=== PATIENT | male | born 1980 | race Caucasian/White ===

== ENCOUNTER 2022-11-03 21:48 | Emergency (ER) | payer SELFPAY ==
[2022-11-03 22:00] VITALS: BP 207/118; PULSE 73; RESP 20; TEMP 36.6; O2SAT 98; BMI 31.4
--- NOTE | 2022-11-03 22:12 | CTR_ITS ---
PROCEDURE INFORMATION: Exam: CT Abdomen And Pelvis Without Contrast Exam date and time: 11/03/2022 10:35 PM Age: 41 years old Clinical indication: Abdominal pain; Flank; Right; Additional info: Right flank pain TECHNIQUE: Imaging protocol: Computed tomography of the abdomen and pelvis without contrast. Radiation optimization: All CT scans at this facility use at least one of these dose optimization techniques: automated exposure control; mA and/or kV adjustment per patient size (includes targeted exams where dose is matched to clinical indication); or iterative reconstruction. REPORTING DATA: Count of CT and Cardiac NM exams in prior 12 months: This patient has received 0 known CTs and 0 known cardiac nuclear medicine studies in the 12 months prior to the current study. COMPARISON: No relevant prior studies available. RADIATION DOSE METRICS: Total DLP (mGy-cm): 933.27 FINDINGS: Lungs: The visualized lung bases show no consolidation. There is a 2.1 cm pneumatocele in the left lower lobe. Liver: The liver is normal in size and homogeneous density. Gallbladder and bile ducts: There has been a cholecystectomy. There is no evidence of biliary ductal dilation. Pancreas: The pancreas is normal. Spleen: The spleen is normal in size and density. Adrenal glands: The adrenal glands are normal. Kidneys and ureters: There is fullness of the right renal collecting system and ureter down to the distal ureter. One cm from the right ureterovesical junction (UVJ), there is a punctate, 3 mm partially obstructive calculus. Stomach and bowel: There is no evidence of small bowel or colonic obstruction. Appendix: The appendix is not identified. There are no pericecal inflammatory changes. Intraperitoneal space: No free air. No significant fluid collection. Vasculature: There is no abdominal aortic aneurysm. Lymph nodes: No enlarged retroperitoneal or mesenteric lymph nodes. Urinary bladder: There is mild bladder wall thickening. Reproductive: Unremarkable as visualized. Bones/joints: No acute fracture. Multilevel degenerative disc disease without significant spinal canal stenosis. Soft tissues: There is a small fat-containing umbilical hernia. Small bilateral nonobstructing inguinal hernias containing adipose tissue. CT/CT kidney stone [id number] IMPRESSION: 1. A partially obstructive 3 mm calculus in the distal right ureter. 2. Bladder wall thickening suggesting cystitis, incomplete distention or chronic outflow obstruction. No bladder stones identified. 3. Status post cholecystectomy. 4. Small fatty umbilical and inguinal hernias.
--- NOTE | 2022-11-03 22:13 | W.ED.MALEGU ---
HPI - Male Genitourinary General: Chief complaint: Urogenital-Male Stated complaint: abdomen pain Time Seen by Provider: 11/03/22 21:50 Source: patient Mode of arrival: ambulatory Limitations: no limitations History of Present Illness: 41-year-old male who states that he had sudden onset of right testicle and right flank pain a few hours ago. States pain is very sharp in nature rates it a 9 out of 10 he denies any worsening proving factors. States he feels like he is having a hard time urinate as well. Has had some nausea denies any vomiting denies any fevers. Associated symptoms: Deny dysuria, nausea or vomiting Review of Systems Const: Denies: fever(s), chills, body aches or change in appetite ENMT: Denies: throat pain or dental pain Card: Denies: chest pain Resp: Denies: dyspnea GI: Denies: abdominal pain, nausea, vomiting or diarrhea : Reports: flank pain and testicular pain; Denies: dysuria Musc: Denies: neck pain or back pain Skin/Breast: Denies: rash Neuro: Denies: headache(s) [place]/Lymph: Denies: easy bruising Physical Exam Const: COMMON NORMALS: no acute distress, patient oriented x3 and healthy appearing HENMT: COMMON NORMALS: normocephalic and atraumatic HEAD & SCALP: normocephalic and atraumatic Neck/C-Spine: COMMON NORMALS: full ROM and supple Chest: COMMONS NORMALS: normal inspection of the chest Resp: COMMON NORMALS: normal respiratory effort, No retractions, No use of accessory muscles and clear to auscultation bilaterally AUSCULTATION: clear to auscultation bilaterally Cardio: COMMON NORMALS: regular rate, regular rhythm and No murmurs present (Cardio) RATE: regular rate RHYTHM: regular rhythm GI: COMMON NORMALS: Normal to inspection, nondistended, normoactive bowel sounds present, Soft to palpation, non-tender and no masses PALPATION: Yes Soft to palpation : PENIS: normal penis SCROTUM: Yes testes descended bilaterally and No Scrotal tenderness present Extremity: COMMON NORMALS: normal to inspection and full ROM Neuro: COMMON NORMALS: patient oriented x3, moves all extremities and no focal motor deficits Psych: COMMON NORMALS: mental status grossly normal, Normal thought process present and cooperative THOUGHT PROCESS: Normal thought process present Skin: COMMON NORMALS: no rashes or lesions noted and no wounds GENERAL SKIN EXAM: no rashes or lesions noted Course Vital Signs: Vital signs: Vital Signs Temperature 97.9 F 11/03/22 22:00 Pulse Rate 73 11/03/22 22:00 Respiratory Rate 18 11/03/22 22:23 Blood Pressure 207/118 11/03/22 22:00 Pulse Oximetry 98 11/03/22 22:00 Oxygen Delivery Me thod Room Air 11/03/22 22:00 MDM - Male Medical Decision Making Patient presents with right flank pain does have a kidney stones 3 mm should be able to pass his pains improved here no signs UTI will prescribe pain meds along with nausea medicine he is to follow-up with his PCP return if worsening Medical Records I reviewed the patient's medical records. Lab Data I reviewed the patient's lab results. 11/03/22 22:29 11/03/22 22:29 Radiology Impressions Abdomen/Pelvis CT 11/03/22 22:12 IMPRESSION: 1. A partially obstructive 3 mm calculus in the distal right ureter. 2. Bladder wall thickening suggesting cystitis, incomplete distention or chronic outflow obstruction. No bladder stones identified. 3. Status post cholecystectomy. 4. Small fatty umbilical and inguinal hernias. Laboratory Results WBC 9.7 10^3/uL (4.0-10.0) 11/03/22 22: RBC 5.18 10^6/uL (4.1-5.3) 11/03/22 22: Hgb 15.3 g/dL (11.7-16.6) 11/03/22 22: Hct 46.5 % (42.0-52.0) 11/03/22 22: MCV 89.8 fl (80-94) 11/03/22 22: MCH 29.5 pg (28.0-34.0) 11/03/22 22: MCHC 32.9 g/dL (30.0-36.0) 11/03/22 22: RDW 13.5 % (12.1-15.1) 11/03/22 22: Plt Count 231 10^3/cmm (130-400) 11/03/22 22: MPV 11.1 fL (7.4-10.4) H 11/03/22 22: Neut % (Auto) 71.3 % 11/03/22 22: Lymph % (Auto) 16.2 % 11/03/22 22: [place] % (Auto) 8.7 % 11/03/22 22: Eos % (Auto) 2.7 % 11/03/22 22: Baso % (Auto) 0.6 % 11/03/22: Neut # (Auto) 6.93 10^3/uL (1.8-7.7) 11/03/22 22: Lymph # (Auto) 1.6 10^3/uL (0.8-4.8) 11/03/22: [place] # (Auto) 0.8 10^3/uL (0.2-0.9) 11/03/22: Eos # (Auto) 0.3 10^3/uL (0.0-0.8) 11/03/22: Baso # (Auto) 0.1 10^3/uL (0.0-0.1) 11/03/22: Nucleated RBC % (auto) 0 % 11/03/22: Nucleated RBCs # 0.0 /100WBC 11/03/22 22: Sodium 141 mmol/L (136-145) 11/03/22 22: Potassium 3.9 mmol/L (3.5-5.1) 11/03/22 22: Chloride 104 mmol/L (98-107) 11/03/22: Carbon Dioxide 26 mmol/L (22-29) 11/03/22 22: Anion Gap 14.9 (5-19) 11/03/22 22: BUN 10 mg/dL (6-20) 11/03/22: Creatinine 0.9 mg/dL (0.7-1.2) 11/03/22: GFR Calculation 93.5 mL/min (90-130) 11/03/22 22: Glucose 138 mg/dL (65-115) H 11/03/22 22: Calculated Osmolality 293 mOsm/kg (285-295) 11/03/22: Calcium 8.8 mg/dL (8.5-10.5) 08/03/23 22:29 Total Bilirubin 0.2 mg/dL (0.15-1.2) 11/03/22 22:29 AST 18 U/L (0-40) 11/03/22 22:29 ALT 15 U/L (0-41) 11/03/22 22:29 Alkaline Phosphatase 113 U/L (40-130) 11/03/22 22:29 Total Protein 7.2 g/dL (6.6-8.7) 11/03/22 22: Albumin 4.2 g/dL (3.5-5.2) 11/03/22 22: Globulin 3.0 g/dL (1.3-4.6) 11/03/22 22: Lipase 19 U/L (13-60) 11/03/22 22:29 Urine Color Yellow (Yellow) 11/03/22 22:06 Urine Appearance Clear (CLEAR) 11/03/22 22:06 Urine pH 5 (5-7) 11/03/22 22:06 Ur Specific [place] 1.025 (1.005-1.030) 11/03/22 22:06 Urine Protein 1+ (Negative) H 11/03/22 22:06 Urine Glucose (UA) Norm (Normal) 11/03/22 22:06 Urine Ketones Negative (Negative) 11/03/22 22:06 Urine Blood 3+ (Negative) H 11/03/22 22:06 Urine Nitrate Negative (Negative) 11/03/22 22:06 Urine Bilirubin Neg (Negative) 11/03/22 22:06 Urine Urobilinogen Neg mg/dL (Negative) 11/03/22 22:06 Ur Leukocyte Esterase Negative (Negative) 11/03/22 22:06 Urine RBC 15-25 /hpf (0-2) H 11/03/22 22:06 Urine WBC None /hpf (0-5) 11/03/22 22:06 Ur Squamous Epith Cells None /hpf (0-5) 11/03/22 22:06 Amorphous Sediment Not Reportable 11/03/22 22:06 Urine Bacteria 1+ /hpf (NONE) H 11/03/22 22:06 Urine Mucus 2+ /hpf 11/03/22 22:06 Discharge Plan Discharge Patient Disposition: Home Clinical Impression: Kidney stone Condition: Stable Prescriptions: New hydrocodone-acetaminophen 5-325 mg tablet 1 tab PO Q6H PRN (Reason: pain) Qty: 14 0RF ondansetron 4 mg tablet,disintegrating 4 mg PO Q6H PRN (Reason: nausea and vomiting) Qty: 14 0RF Discharge Orders: Discharge ED (Routine); Ordered 11/03/22 Ordered By: Zainab Georges Discharge Diet: Advance as tolerated Discharge Activity: Resume usual activity Patient Instructions: Kidney Stones (ED), Opioid Safety Coding Level of Care Code ED Abrading Machine Tender for Meghna Campbell
[2022-11-03 22:23] VITALS: RESP 18
[2022-11-03] MEDS: HYDROmorphone 1 mg/mL INJ 1 mL IVP (22:23)
[2022-11-03] MEDS: ondansetron 2 mg/ML SDV 2 mL 4 MG IVP (22:23)
[2022-11-03] MEDS: sodium chloride 0.9% 1,000 ML 999 ML IV (22:23)
[2022-11-03 22:39] LABS: Basophils # 0.1 10^3/uL (0.0-0.1); Basophils % 0.6 %; Eosinophils # 0.3 10^3/uL (0.0-0.8); Eosinophils % 2.7 %; Hematocrit 46.5 % (42.0-52.0); Hemoglobin 15.3 g/dL (11.7-16.6); Lymphocytes # 1.6 10^3/uL (0.8-4.8); Lymphocytes % 16.2 %; Mean Corpuscular HGB Conc 32.9 g/dL (30.0-36.0); Mean Corpuscular Hemoglobin 29.5 pg (28.0-34.0); Mean Corpuscular Volume 89.8 fl (80-94); Mean Platelet Volume 11.1 fL (7.4-10.4); Monocytes # 0.8 10^3/uL (0.2-0.9); Monocytes % 8.7 %; Neutrophils # 6.93 10^3/uL (1.8-7.7); Neutrophils % 71.3 %; Nucleated Red Blood Cells % 0 %; Platelet Count 231 10^3/cmm (130-400); Red Blood Count 5.18 10^6/uL (4.1-5.3); Red Cell Distribution Width 13.5 % (12.1-15.1); White Blood Count 9.7 10^3/uL (4.0-10.0)
[2022-11-03] MEDS: ketorolac 30 mg/mL INJ IVP (22:52)
[2022-11-03 22:53] LABS: Add Urine Microscopic? YES; Bilirubin Urine Neg (Negative); Blood Urine 3+ (Negative); Glucose Urine UA Norm (Normal); Ketones Urine Negative (Negative); Leukocyte Esterase Urine Negative (Negative); Nitrate Urine Negative (Negative); Protein Urine 1+ (Negative); Specific Gravity, Urine 1.025 (1.005-1.030); Urine Appearance Clear (CLEAR); Urine Color Yellow (Yellow); Urobilinogen Urine Neg (Negative); pH Urine 5 (5-7)
[2022-11-03 22:54] LABS: Add Urine Culture? Yes; Bacteria Urine 1+ /hpf; Mucus Urine 2+ /hpf; RBC Urine 15-25 /hpf (0-2)
[2022-11-03 23:01] LABS: Alanine Aminotransferase 15 U/L (0-41); Albumin Level 4.2 g/dL (3.5-5.2); Alkaline Phosphatase 113 U/L (40-130); Anion Gap 14.9 (5-19); Aspartate Amino Transferase 18 U/L (0-40); Blood Urea Nitrogen 10 mg/dL (6-20); Calcium 8.8 mg/dL (8.5-10.5); Carbon Dioxide 26 mmol/L (22-29); Chloride 104 mmol/L (98-107); Glomerular Filtration Rate 93.5 mL/min (90-130); Glucose 138 mg/dL (65-115); Lipase 19 U/L (13-60); Osmolality Calculated 293 mOsm/kg (285-295); Potassium 3.9 mmol/L (3.5-5.1); Sodium 141 mmol/L (136-145); Total Bilirubin 0.2 mg/dL (0.15-1.2); Total Protein 7.2 g/dL (6.6-8.7)
[2022-11-03] MEDS: hyDRALAzine 20 mg/mL INJ 1 mL 10 MG IVP (23:02)
[2022-11-03 23:55] VITALS: BP 141/84; PULSE 77; RESP 18; O2SAT 99
== END 2022-11-03 23:56 | disposition home or self-care (01) ==
PROVIDERS: Emergency Provider Emergency Medicine
DX: N20.0 Calculus of kidney (principal)
CPT/HCPCS: 74176; 80053; 81001; 83690; 85025; 87086; 96361; 96374; 96375; 99285; J0360; J1170; J1885; J2405; J7030

== ENCOUNTER 2023-10-09 12:03 | Emergency (ER) | payer SELFPAY ==
[2023-10-09 12:07] VITALS: BP 249/123; PULSE 85; RESP 17; TEMP 37; O2SAT 97; BMI 31.1
[2023-10-09] MEDS: BUPivacaine 0.5% INJ 10 mL INJECTION (13:24)
--- NOTE | 2023-10-09 13:28 | ED_ITS ---
HPI - Dental/Oral General: Chief complaint: Dental/Oral Stated complaint: left side tooth pain and infection Time Seen by Provider: 10/09/23 12:53 Source: patient Mode of arrival: ambulatory Limitations: no limitations History of Present Illness: 42-year-old male states been having left lower dental pain with swelling for last 4 to 5 days. He states he has not taken any meds. He denies any fevers. He rates his pain a 7 out of 10 history of poor dentition he has not seen a dentist. Associated symptoms: Denies fever(s) Review of Systems Const: Denies: fever(s), chills, body aches or change in appetite ENMT: Reports: mouth pain; Denies: throat pain or dental pain Card: Denies: chest pain Resp: Denies: dyspnea GI: Denies: abdominal pain, nausea, vomiting or diarrhea Musc: Denies: neck pain or back pain Skin/Breast: Denies: rash Neuro: Denies: headache(s) Physical Exam Const: COMMON NORMALS: no acute distress, patient oriented x3 and healthy appearing HENMT: COMMON NORMALS: normocephalic and atraumatic HEAD & SCALP: normocephalic and atraumatic OTHER: Poor dentition has a large abscess left lower molar Eye: COMMON NORMALS: Equal, round and reactive pupils present and EOMs intact bilaterally PUPIL: Yes Equal, round and reactive pupils present Neck/C-Spine: COMMON NORMALS: full ROM and supple Chest: COMMONS NORMALS: normal inspection of the chest Resp: COMMON NORMALS: normal respiratory effort Extremity: COMMON NORMALS: normal to inspection and full ROM Neuro: COMMON NORMALS: patient oriented x3, moves all extremities and no focal motor deficits Psych: COMMON NORMALS: mental status grossly normal, Normal thought process present and cooperative THOUGHT PROCESS: Normal thought process present Skin: COMMON NORMALS: no rashes or lesions noted and no wounds GENERAL SKIN EXAM: no rashes or lesions noted Procedures Abscess I/D Site: oral Side (if applicable): left Technique: incised with #11 blade Irrigation: No Packing used?: none Nerve Block Nerve Block 1: Time out performed: Yes Local Anesthetic: bupivacaine 0.5% Amount of anesthesia used (mL): 8 Side: left Intraoral Nerve Block: inferior alveolar Procedure Successful: Yes Patient Tolerated Procedure: well Complications: none Course Vital Signs: Vital signs: Vital Signs Temperature 98.6 F 10/09/23 12:07 Pulse Rate 85 10/09/23 12:07 Respiratory Rate 17 10/09/23 12:07 Blood Pressure 249/123 10/09/23 12:07 Pulse Oximetry 97 10/09/23 12:07 Oxygen Delivery Me thod Room Air 10/09/23 12:07 MDM - Dental/Oral Medical Decision Making Patient presents here with a dental abscess that I incised and drained. He tolerated procedure well we will place him on antibiotic she is to follow-up with dentist return if worsening he has no trismus he understands agrees to plan Medical Records I reviewed the patient's medical records. No radiology studies performed this visit Discharge Plan Discharge Patient Disposition: Home Clinical Impression: Dental abscess Condition: Stable Prescriptions: New cephalexin 500 mg capsule 500 mg PO TID 7 Days Qty: 21 0RF naproxen [Naprosyn] 500 mg tablet 500 mg PO BID PRN (Reason: pain) Qty: 20 0RF No Action hydrocodone-acetaminophen 5-325 mg tablet 1 tab PO Q6H PRN (Reason: pain) Qty: 14 0RF ondansetron 4 mg tablet,disintegrating 4 mg PO Q6H PRN (Reason: nausea and vomiting) Qty: 14 0RF Discharge Orders: Discharge ED (Routine); Ordered 10/09/23 Ordered By: Zainab Georges Discharge Diet: Advance as tolerated Discharge Activity: Resume usual activity Patient Instructions: Dental Abscess (ED) Coding Level of Care Code ED Transport Operations Inspector for Meghna Campbell
[2023-10-09 13:38] VITALS: BP 223/125; PULSE 79; RESP 15; O2SAT 97
[2023-10-09 14:13] VITALS: BP 223/125; PULSE 79; RESP 15; TEMP 37; O2SAT 97
== END 2023-10-09 13:30 | disposition home or self-care (01) ==
PROVIDERS: Emergency Provider Emergency Medicine
DX: K04.7 Periapical abscess without sinus (principal)
CPT/HCPCS: 41800; 99282; J3490